=== PATIENT | female | born 1995 | race Two or more races ===

== ENCOUNTER 2024-09-29 11:24 | Emergency (ER) | payer BC, OTHER ==
[~2024-09-29] VITALS: Ht 160 cm; Wt 69.1 kg
[2024-09-29 13:41] LABS: Basophils # (auto) 0 10 ^3/uL (0-0.2); Basophils % (auto) 0.3 % (0.0-2.0); Eosinophils # (auto) 0.1 10 ^3/uL (0-0.8); Eosinophils % (auto) 1.2 % (0.0-7.0); Hematocrit 37.1 % (36.0-46.0); Hemoglobin 12.7 g/dL (12.2-16.2); Lymphocytes # (auto) 1.8 10 ^3/uL (0.4-5.4); Lymphocytes % (auto) 16.4 % (10.0-50.0); Mean Corpuscular Hemoglobin 30.8 pg (28.0-32.0); Mean Corpuscular Hgb Conc. 34.1 g/dL (32.0-36.0); Mean Corpuscular Volume 90.2 fL (80.0-100.0); Monocytes # (auto) 0.9 10 ^3/uL (0-1.3); Monocytes % (auto) 8.3 % (0.0-12.0); Neutrophils % (auto) 73.8 % (37.0-80.0); Platelet Count (auto) 341 10^3/uL (140-450); Red Blood Cells 4.12 10^6/uL (4.0-5.20); Red Cell Distribution Width 15.4 % (11.8-14.3); White Blood Cell 10.8 10^3/uL (4.4-10.8)
[2024-09-29 14:00] LABS: Alanine Aminotransferase 31 U/L (7-40); Alkaline Phosphatase 73 U/L (46-116); Aspartate Aminotransferase 30 U/L (13-40); Calcium 10.1 mg/dL (8.7-10.4); Carbon Dioxide 21 mmol/L (20-31); Chloride 105 mmol/L (98-107); Glucose 80 mg/dL (74-106)
[2024-09-29 14:01] LABS: Albumin 4.3 g/dL (3.2-4.8); Anion Gap 11 (5-15); Bilirubin, Total 0.3 mg/dL (0.2-1.0); Sodium 137 mmol/L (136-145); Total Protein 7.8 g/dL (5.7-8.2)
[2024-09-29 14:01] LABS: Urine Bacteria None Seen /hpf (None Seen)
[2024-09-29 14:06] LABS: BUN/Creatinine Ratio 9.8 (10.0-20.0); Blood Urea Nitrogen < 5 mg/dL (9-23); Potassium 3.5 mmol/L (3.5-5.1)
[2024-09-29 14:28] LABS: Urine Blood Negative /uL (Negative); Urine Clarity Clear (Clear); Urine Color Colorless (Yellow); Urine Mucus FEW (None Seen); Urine Protein, UAD Negative (Negative); Urine Specific Gravity 1.006 (1.001-1.035); Urine Squamous Epithelial Cell FEW /hpf (<5); Urine Urobilinogen Normal (Negative); Urine WBC 2 /hpf (0 - 5)
--- NOTE | 2024-09-29 15:05 | ED.PDOC ---
History of Present Illness HPI Comments 29-year-old female presents with a chief complaint of abdominal pain with associated nausea and current . Patient states that she is currently 18 weeks , . Patient mentions that she is having pain in her lower quadrant abdomen region, non-radiating, is described as cramping sensation, and is not associated with any other symptoms aside from nausea and vomiting, which she has had throughout her and has not changed. Patient denies any vaginal bleeding and reports that she was advised by her OB doctor Nilam to come to ER for evaluation. Patient mentions that her last bowel movement was normal and was this morning. Chief Complaint: Abdominal Pain Time Seen by MD: 14:54 Primary Care Provider: son Rodriguez Notes: Medications, Allergies Allergies: Coded Allergies: NO KNOWN ALLERGIES (Unverified , 09/29/24) Information Source: Patient Mode of Arrival: Ambulatory Severity: Moderate Timing: Days Duration: Since onset Prehospital treatment: None Past Medical History PAST MEDICAL HISTORY: Denies Surgical History: Denies all surgeries One Para 0 Family History Family History: Reviewed,noncontributory to illness Social History Smoker: Non-Smoker Alcohol: Denies ETOH Use Drugs: Denies Drug Use Lives In: Home Constitutional: denies: chills, diaphoresis, fatigue, fever, malaise, sweats, weakness, others EENTM: denies: blurred vision, double vision, ear bleeding, ear discharge, ear drainage, ear pain, ear ringing, eye pain, eye redness, hearing loss, mouth pain, mouth swelling, nasal discharge, nose bleeding, nose congestion, nose pain, photophobia, tearing, throat pain, throat swelling, voice changes, others Respiratory: denies: cough, hemoptysis, orthopnea, SOB at rest, shortness of breath, SOB with excertion, stridor, wheezing, others Cardiovascular: denies: chest pain, dizzy spells, diaphoresis, Dyspnea on exertion, edema, irregular heart beat, left arm pain, lightheadedness, palpitations, PND, syncope, others Gastrointestinal: reports: abdominal pain, nausea; denies: abdomen distended, blood streaked bowels, constipated, diarrhea, dysphagia, difficulty swallowing, hematemesis, melena, poor appetite, poor fluid intake, rectal bleeding, rectal pain, vomiting, others Genitourinary: reports: ; denies: abnormal vagina bleeding, burning, dyspareunia, dysuria, flank pain, frequency, hematuria, incontinence, pain, vagina discharge, urgency, others Neurological: denies: dizziness, fainting, headache, left sided numbness, left sided weakness, numbness, paresthesia, pre-existing deficit, right sided numbness, right sided weakness, seizure, speech problems, tingling, tremors, weakness, others Musculoskeletal: denies: back pain, gout, joint pain, joint swelling, muscle pain, muscle stiffness, neck pain, others Integumetry: denies: bruises, change in color, change in hair/nails, dryness, laceration, lesions, lumps, rash, wounds, others Allergic/Immunocompromised: denies: Difficulty Healing, Frequent Infections, Hives, Itching, others Hematologic/Lymphatic: denies: anemia, blood clots, easy bleeding, easy bruising, swollen glands, others Endocrine: denies: excessive hunger, excessive sweating, excessive thirst, excessive urination, flushing, intolerance to cold, intolerance to heat, unexplained weight gain, unexplained weight loss, others Psychiatric: denies: anxiety, bipolar disorder, depression, hopeless, panic disorder, schizophrenia, sleepless, suicidal, others All Other Systems: Reviewed and Negative Physical Exam General Appearance: No Apparent Distress HEENT: Other (Unremarkable) Neck: Full Range of Motion, Normal Inspection Respiratory: Lungs Clear, No Accessory Muscle Use, No Respiratory Distress, Normal Breath Sounds Cardiovascular: No Edema, No JVD, Regular Rate/Rhythm Breast Exam: Deferred Gastrointestinal: LLQ, Soft, Tenderness Genitalia: Deferred Pelvic: Deferred Rectal: Deferred Extremities: Normal inspection, Normal range of motion, Non-tender, No pedal edema Musculoskeletal : Apperance: Normal Neurologic: Alert (Oriented x4), No Motor Deficits, Normal Affect, Normal Mood, No Sensory Deficits Cerebellar Function: NOT DONE Reflexes: NOT DONE Skin: Dry, Normal Color, Warm Lymphatic: NOT DONE Was a procedure done? Was a procedure done?: No Differential Dx Considerations may include: UTI, distress, demise, threatened , constipation, d iverticular disease, kidney stone, among others X-Ray, Labs, Meds, VS Vital Signs Date Time Temp Pulse Resp B/P (MAP) Pulse Ox O2 Delivery O2 Flow Rate FiO2 09/29/24 17:25 98.2 88 14 108/52 (70) 100 98.2 09/29/24 11:41 99.0 89 17 114/76 (89) 100 Lab Test 09/29/24 14:00 09/29/24 13:17 Range/Units Urine Color Colorless Yellow Urine Clarity Clear Clear Urine pH 6.0 5.0-9.0 Urine Specific [place] 1.006 1.001-1.035 Urine Protein Negative Negative Urine Ketones Trace Negative Urine Blood Negative Negative /uL Urine Nitrite Negative Negative Urine Bilirubin Negative Negative Urine Urobilinogen Normal Negative mg/dL Urine Leukocyte Esterase Trace Negative /uL Urine RBC 1 0 - 4 /hpf Urine WBC 2 0 - 5 /hpf Urine Squamous Epithelial Cells Few <5 /hpf Urine Bacteria None seen None Seen /hpf Urine Mucus Few None Seen Urine Glucose Normal Normal mg/dL White Blood Count 10.8 4.4-10.8 10^3/uL Red Blood Count 4.12 4.0-5.20 10^6/uL Hemoglobin 12.7 12.2-16.2 g/dL Hematocrit 37.1 36.0-46.0 % Mean Corpuscular Volume 90.2 80.0-100.0 fL Mean Corpuscular Hemoglobin 30.8 28.0-32.0 pg Mean Corpuscular Hemoglobin Concent 34.1 32.0-36.0 g/dL Red Cell Distribution Width 15.4 H 11.8-14.3 % Platelet Count 341 140-450 10^3/uL Mean Platelet Volume 7.3 6.9-10.8 fL Neutrophils (%) (Auto) 73.8 37.0-80.0 % Lymphocytes (%) (Auto) 16.4 10.0-50.0 % Monocytes (%) (Auto) 8.3 0.0-12.0 % Eosinophils (%) (Auto) 1.2 0.0-7.0 % Basophils (%) (Auto) 0.3 0.0-2.0 % Neutrophils # (Auto) 8.0 1.6-8.6 10 ^3/uL Lymphocytes # (Auto) 1.8 0.4-5.4 10 ^3/uL Monocytes # (Auto) 0.9 0-1.3 10 ^3/uL Eosinophils # (Auto) 0.1 0-0.8 10 ^3/uL Basophils # (Auto) 0 0-0.2 10 ^3/uL Nucleated Red Blood Cells 0.0 % Sodium Level 137 136-145 mmol/L Potassium Level 3.5 3.5-5.1 mmol/L Chloride Level 105 98-107 mmol/L Carbon Dioxide Level 21 20-31 mmol/L Anion Gap 11 5-15 Blood Urea Nitrogen < 5 L 9-23 mg/dL Creatinine 0.51 L 0.550-1.02 mg/dL Glomerular Filtration Rate Calc 128 >90 mL/min BUN/Creatinine Ratio 9.8 L 10.0-20.0 Serum Glucose 80 74-106 mg/dL Calcium Level 10.1 8.7-10.4 mg/dL Total Bilirubin 0.3 0.2-1.0 mg/dL Aspartate Amino Transferase (AST) 30 13-40 U/L Alanine Aminotransferase (ALT) 31 7-40 U/L Alkaline Phosphatase 73 46-116 U/L Total Protein 7.8 5.7-8.2 g/dL Albumin 4.3 3.2-4.8 g/dL Beta HCG, Quantitative 99872.8 H 1.5-4.2 mIU/mL PROCEDURE(s): OBUS - OB ULTRASOUND COMP GTR 14 WKS REASON: LLQ PAIN ORDER NUMBER(s): [id number], ACCESSION NUMBER(s): [id number] LIMITED OB ULTRASOUND > 14 WKS: HISTORY: LLQ PAIN TECHNIQUE: Multiple real-time grayscale images of the gravid uterus with duplex Doppler color flow and M-mode spectral analysis. TRANSDUCER: Transabdominal FINDINGS: IUP single live fetus at 18 weeks 6 days based on composite averages of the BPD, head circumference, abdominal circumference and femur length Estimated weight 252 grams, or 0 lb 9 oz heart rate 148 beats per minute JOVANA within normal limits. Cervix not well-visualized Cephalic Presentation Anterior placenta without previa or abruption. IMPRESSION: 1. IUP single live fetus at 18 weeks 6 days AUA corresponding to an VA of 02/24/2025. HS:Y X-Ray, Labs, Meds, VS Comment 29-year-old female with current 18 week complaining of left lower quadrant pain for 3 days Vitals unremarkable Exam remarkable for left lower quadrant tenderness to deep palpation. Nontender to percussion. No rebound or guarding. Ultrasound: IMPRESSION: 1. IUP single live fetus at 18 weeks 6 days AUA corresponding to an VA of 02/24/2025 CBC, basic metabolic panel and UA unremarkable for any abnormality of acute significance. Serum quantitative hCG 81166.8 Patient declined any pain medication in the ED, stating she just wanted to make sure the baby is okay. On re-evaluation, patient is well-appearing, ambulatory without difficulty, and states pain is tolerable. Patient appears stable for outpatient treatment with Tylenol as needed for pain and close follow-up with her OBGYN. Rx Tylenol Time of 1ST Reevaluation: 15:24 Reevaluation 1ST: Unchanged Time of 2ND Reevaluation: 18:27 Reevaluation 2ND: Unchanged Patient Education/Counseling: Diagnosis, Treatment, Prognosis Family Education/Counseling: No Family Present Departure 1 Departure Time of Disposition: 18:27 Impression: Primary Impression: Abdominal pain affecting Disposition: 01 HOME / SELF CARE / HOMELESS Condition: Stable Additional Instructions: Your blood and urine tests were unremarkable. Your ultrasound was normal. I have enclosed a report below. No acute treatment is needed at this time. You may take Tylenol as needed for pain. Follow-up with your OBGYN in 1-2 days. [place] [address] Ph: [phone] DIAGNOSTIC IMAGING Diagnostic Imaging Report : [id number] Signed PATIENT: JM GUO ACCT: [id number] UNIT: [id number] : 1995 LOC: ER ROOM / BED: / AGE / SEX: 29 / F ADM STATUS: REG ER SERVICE 1502 ORDERING PHYSICIAN: JENNIFER العراقي MD PROCEDURE(s): OBUS - OB ULTRASOUND COMP GTR 14 WKS REASON: LLQ PAIN ORDER NUMBER(s): [id number], ACCESSION NUMBER(s): [id number] LIMITED OB ULTRASOUND > 14 WKS: HISTORY: LLQ PAIN TECHNIQUE: Multiple real-time grayscale images of the gravid uterus with duplex Doppler color flow and M-mode spectral analysis. TRANSDUCER: Transabdominal FINDINGS: IUP single live fetus at 18 weeks 6 days based on composite averages of the BPD, head circumference, abdominal circumference and femur length Estimated weight 252 grams, or 0 lb 9 oz heart rate 148 beats per minute JOVANA within normal limits. Cervix not well-visualized Cephalic Presentation Anterior placenta without previa or abruption. IMPRESSION: 1. IUP single live fetus at 18 weeks 6 days AUA corresponding to an VA of 02/24/2025. HS:Y ATED BY: SRINIVASA GONZALEZ DO DICTATED DATE/TIME: 09/29/24 1548 e-Prescriptions Acetaminophen (Tylenol Extra Strength) 500 Mg Tab 1000 MG PO Q6HP PRN, #30 TAB Prov: JENNIFER العراقي MD 09/29/24 Discharged With: Self Critical Care Note Critical Care Time?: No Stability Stability form required: No I personally scribed for JENNIFER العراقي MD ([email or web address]) on 09/29/24 at 15:05. Electronically submitted by Jensen Regalado ([email or web address]). JENNIFER العراقي MD Sep 29, 2024 15:05
--- NOTE | 2024-09-29 15:50 | DVH ---
LIMITED OB ULTRASOUND > 14 WKS: HISTORY: LLQ PAIN TECHNIQUE: Multiple real-time grayscale images of the gravid uterus with duplex Doppler color flow an d M-mode spectral analysis. TRANSDUCER: Transabdominal FINDINGS: IUP single live fetus at 18 weeks 6 days based on composite averages of the BPD, head circumference, abdominal circumference and femur length Estimated weight 252 grams, or 0 lb 9 oz heart rate 148 beats per minute JOVANA within normal limits. Cervix not well-visualized Cephalic Presentation Anterior placenta without previa or abruption. IMPRESSION: 1. IUP single live fetus at 18 weeks 6 days AUA corresponding to an VA of 02/24/2025. HS:Y
[2024-09-29 17:25] VITALS: BP 108/52; PULSE 88; RESP 14; TEMP 98.2; O2SAT 100
[2024-09-29] MEDS ORDERED: ACET-1304 PO (18:29)
== END 2024-09-29 19:15 | disposition home or self-care (01) ==
LOC: ER 11:24
DX: O26.892 Other specified pregnancy related conditions, second trimester (principal); R10.30 Lower abdominal pain, unspecified; R10.2 Pelvic and perineal pain; O21.9 Vomiting of pregnancy, unspecified; Z3A.18 18 weeks gestation of pregnancy
CPT/HCPCS: 36415; 76805; 80053; 81001; 84702; 85025

== ENCOUNTER 2025-02-18 22:07 | Observation (INO) | payer BC ==
[~2025-02-18] VITALS: Ht 160 cm; Wt 73.0 kg
[~2025-02-18 22:07] MED LIST: ACET-1304 PO
--- NOTE | 2025-02-19 22:46 | DVHDS2 ---
Physician Discharge Progress N Final Diagnosis: labor check 38wks Operations or Procedures: Operations or Procedures nst reactive reviwed Condition on Discharge: Good Disposition: Home Discharge Instructions: Diet: Regular Activity: No Restrictions, As Tolerated Medications: na Follow Up Care: Specialist: 1w Discharge Statement: "Patient was advised to return to the ER or call 911 if any headaches, dizziness, shortness of breath, chest pain, abdominal pain, bleeding, fevers, or worsening of medical condition. Patient was counseled about treatment plan, medications, possible side effects, patientverbalized understanding. All questions were answered to the best of my ability. This discharge took greater then 30 minutes in planning, reviewing documen tation, counseling the patient, and discussing with other team members." Visit Coding OBGYN Date of Service: February 18, 2025 Billing Provider: TITUS ARCHER DO AUTO LOCATOR Common Visit Codes: [id number] OBS CARE (HIGH) AUTO LOCATOR Procedure Codes: 68654-26- NON-STRESS TEST TITUS ARCHER DO February 19, 2025 22:46
== END 2025-02-18 23:36 | disposition home or self-care (01) ==
LOC: LDRP 22:07
PROVIDERS: ADMIT Obstetrics & Gynecology; ATTEND Obstetrics & Gynecology
DX: O62.9 Abnormality of forces of labor, unspecified (principal); Z3A.38 38 weeks gestation of pregnancy; Z79.899 Other long term (current) drug therapy
CPT/HCPCS: 59025; 81002; 94760; G0378

== ENCOUNTER 2025-02-19 03:18 | Inpatient (IN) | payer BC, OTHER ==
[~2025-02-19] VITALS: Ht 160 cm; Wt 73.0 kg
[2025-02-19] MEDS: LACTATED RINGER'S 1,000 ML IV SCH (04:00)
[2025-02-19] MEDS ORDERED: NALBUPHINE HCL 10 MG/1ml INJECTION IV PRN (04:30)
[2025-02-19] MEDS ORDERED: LIDOCAINE 2%HCL (LOCAL ANESTH.) INJ 20ML MDV IJ PRN (04:30)
[2025-02-19 05:03] LABS: Basophils # (auto) 0.1 10 ^3/uL (0-0.2); Basophils % (auto) 0.6 % (0.0-2.0); Eosinophils # (auto) 0.1 10 ^3/uL (0-0.8); Eosinophils % (auto) 0.7 % (0.0-7.0); Hematocrit 38.4 % (36.0-46.0); Hemoglobin 12.9 g/dL (12.2-16.2); Lymphocytes # (auto) 1.7 10 ^3/uL (0.4-5.4); Lymphocytes % (auto) 14.6 % (10.0-50.0); Mean Corpuscular Hgb Conc. 33.6 g/dL (32.0-36.0); Mean Corpuscular Volume 89.3 fL (80.0-100.0); Monocytes # (auto) 1.2 10 ^3/uL (0-1.3); Monocytes % (auto) 10.5 % (0.0-12.0); Neutrophils # (auto) 8.6 10 ^3/uL (1.6-8.6); Neutrophils % (auto) 73.6 % (37.0-80.0); Nucleated Red Blood Cells % 0.1 %; Platelet Count (auto) 285 10^3/uL (140-450); Red Cell Distribution Width 16.6 % (11.8-14.3); White Blood Cell 11.7 10^3/uL (4.4-10.8)
[2025-02-19 05:13] LABS: Urine Bacteria FEW /hpf (None Seen); Urine Blood 1+ /uL (Negative); Urine Clarity Turbid (Clear); Urine Color Colorless (Yellow); Urine Protein, UAD 1+ (Negative); Urine Squamous Epithelial Cell MOD /hpf (<5); Urine Urobilinogen Normal (Negative); Urine WBC 27 /HPF (0-5); Urine pH 6.5 (5.0-9.0)
--- NOTE | 2025-02-19 05:19 | DVHHP ---
ADMIT DATE: 02/19/2025 CHIEF COMPLAINT: Spontaneous rupture of membrane. HISTORY OF PRESENT ILLNESS: The patient is a 29-year-old 1, para 0 with EDC 02/27, estimated gestational age of 38+ weeks, admitted for spontaneous rupture of membrane. Denies having any vaginal bleeding. The patient has positive AmniSure and pooling. PAST MEDICAL HISTORY: None. PAST SURGICAL HISTORY: None. SOCIAL HISTORY: None. FAMILY HISTORY: None. OBSTETRIC AND GYNECOLOGIC HISTORY: Primigravid. ALLERGIES: No known drug allergies. REVIEW OF SYSTEMS: Consistent with HPI. PHYSICAL EXAMINATION: VITAL SIGNS: Stable, afebrile. HEENT: Within normal limits. CARDIOVASCULAR: Regular rate and rhythm. LUNGS: Clear to auscultation. BREASTS: Symmetrical. No masses. ABDOMEN: Gravid. Positive heart. PELVIC: 2 cm, 50%, -1. EXTREMITIES: No clubbing, cyanosis or edema. IMPRESSION: Intrauterine at 38+ weeks with spontaneous rupture of membrane. PLAN: Admit. We will start on Pitocin. Informed consent obtained. DO ISIDORO Dubois/TORRI TID: [id number] RECEIPT: [id number]
[2025-02-19 05:20] LABS: Alanine Aminotransferase 15 U/L (7-40); Albumin 3.7 g/dL (3.2-4.8); Anion Gap 10 (5-15); Aspartate Aminotransferase 18 U/L (13-40); Calcium 9.2 mg/dL (8.7-10.4); Carbon Dioxide 21 mmol/L (20-31); Chloride 105 mmol/L (98-107); Glucose 94 mg/dL (74-106); Potassium 3.7 mmol/L (3.5-5.1); Total Protein 6.8 g/dL (5.7-8.2)
[2025-02-19 05:21] LABS: Bilirubin, Total 0.4 mg/dL (0.2-1.0)
[2025-02-19 05:23] LABS: INR 0.94 (0.9-1.15)
--- NOTE | 2025-02-19 05:27 | DVH ---
EXAM: US Biophysical Profile Without Non-Stress Testing CLINICAL INDICATION: Leakage of Fluid and Category II FHR Tracing TECHNIQUE: Real-time ultrasound of the maternal pelvis for biophysical profile evaluation with image documentation. COMPARISON: None FINDINGS: BREATHING MOVEMENTS: Present. Score 2/2. GROSS BODY MOVEMENTS: Present. Score 2/2. TONE: Present. Score 2/2. QUALITATIVE AMNIOTIC FLUID VOLUME: JOVANA 20.9 cm. HEART RATE: heart rate 141 beats per minute. PRESENTATION: Cephalic presentation. PLACENTA: Anterior locating placenta. No placenta previa or abruption. OTHER FINDINGS: . . IMPRESSION: No acute findings. Normal biophysical profile with score of 8/8.
[2025-02-19 05:31] LABS: Alkaline Phosphatase 162 U/L (46-116); BUN/Creatinine Ratio 9.4 (10.0-20.0); Blood Urea Nitrogen < 5 mg/dL (9-23); Sodium 136 mmol/L (136-145)
[2025-02-19 05:32] LABS: Amphetamine Screen, Urine Neg (NEGATIVE); Barbiturate Scree,Urine Neg (NEGATIVE); Benzodiazephine Screen, Urine Neg (NEGATIVE); Cannabinoid Screen, Urine Neg (NEGATIVE); Cocaine Screen, Urine Neg (NEGATIVE); Opiate Scree,Urine Neg (NEGATIVE); Phencyclidine Screen, Urine Neg (NEGATIVE)
[2025-02-19] MEDS: NALOXONE HCL 0.4 MG/ML VIAL IV ONE (06:30)
--- NOTE | 2025-02-19 07:16 | DVHPN2 ---
Chief Complaints Patient reports: No new complaints Nursing reports: No new complaints Objective Medications Current Medications Medications (Trade) Dose Ordered Sig/Demetris Route PRN Reason Start Time Stop Time Status Last Admin Benzocaine (Dermoplast) 1 applic PRN PRN TOP PERINEAL AREA DISCOMFORT 02/19/25 04:30 Cefazolin Sodium 50 ml @ 100 mls/hr Q8HR IV 02/19/25 06:00 Lactated Ringer's 1,000 ml @ 125 mls/hr Q8H IV 02/19/25 04:00 02/19/25 04:00 Lidocaine HCl (Xylocaine) 40 ml ONCE PRN IJ PERINEAL AREA DISCOMFORT 02/19/25 04:30 Misoprostol (Cytotec) 50 mcg Q4HPRN PRN PO CERVICAL RIPENING 02/19/25 05:30 Nalbuphine HCl (Nubain) 10 mg Q4HP PRN IV MODERATE PAIN (4-6 PAIN SCALE) 02/19/25 04:30 Sodium Lauryl Sulfate (Phisoderm) 240 ml PRN PRN TOP PERINEAL AREA DISCOMFORT 02/19/25 04:30 Witch Graciela (Tucks) 1 pad PRN PRN TOP PERINEAL AREA DISCOMFORT 02/19/25 04:30 Lungs: Normal Cardiovascular: Normal Abdominal: Soft Extremities: Normal Studies Laboratory Tests 02/19/25 04:42 Test 02/19/25 04:42 Range/Units Serum Glucose 94 74-106 mg/dL Ass/Plan Assessment early labor Plan rec epidural give cytotec then start pitocin Visit Coding OBGYN Date of Service: February 19, 2025 Billing Provider: TITUS ARCHER DO ASSISTANT WOMEN'S TENNIS COACH Common Visit Codes: [id number] INP/OBS CARE(HIGH) ASSISTANT WOMEN'S TENNIS COACH Procedure Codes: 92887-60- NON-STRESS TEST TITUS ARCHER DO February 19, 2025 07:16
[2025-02-19] MEDS: ePHEDrine SULFATE 50 MG/ML AMP IV ONE (07:19)
[2025-02-19] MEDS: ceFAZolin 1GM/50ML 50 ML IV SCH (07:30)
[2025-02-19] MEDS: DERMOPLAST 60ML BOTTLE TOP PRN (07:41)
[2025-02-19] MEDS: WITCH HAZEL-GLYCERIN PAD TOP PRN (07:41)
[2025-02-19] MEDS: PHISODERM TOP SOLN 240ML BTL TOP PRN (07:41)
[2025-02-19] MEDS: ROPIVACAINE HCL 200 ML ONE (07:43)
[2025-02-19] MEDS: LACTATED RINGER'S 1,000 ML IV ONE (07:45)
[2025-02-19] MEDS: miSOPROStol 50 MCG per PRE-CUT 1/2 TAB PO PRN (10:59)
--- NOTE | 2025-02-19 14:19 | DVHPN2 ---
Chief Complaints Patient reports: No new complaints Nursing reports: No new complaints Objective Medications Current Medications Medications (Trade) Dose Ordered Sig/Demetris Route PRN Reason Start Time Stop Time Status Last Admin Benzocaine (Dermoplast) 1 applic PRN PRN TOP PERINEAL AREA DISCOMFORT 02/19/25 04:30 02/19/25 07:41 Cefazolin Sodium 50 ml @ 100 mls/hr Q8HR IV 02/19/25 06:00 02/19/25 07:30 Lactated Ringer's 1,000 ml @ 125 mls/hr Q8H IV 02/19/25 04:00 02/19/25 04:00 Lidocaine HCl (Xylocaine) 40 ml ONCE PRN IJ PERINEAL AREA DISCOMFORT 02/19/25 04:30 Misoprostol (Cytotec) 50 mcg Q4HPRN PRN PO CERVICAL RIPENING 02/19/25 05:30 Nalbuphine HCl (Nubain) 10 mg Q4HP PRN IV MODERATE PAIN (4-6 PAIN SCALE) 02/19/25 04:30 Sodium Lauryl Sulfate (Phisoderm) 240 ml PRN PRN TOP PERINEAL AREA DISCOMFORT 02/19/25 04:30 02/19/25 07:41 Witch Graciela (Tucks) 1 pad PRN PRN TOP PERINEAL AREA DISCOMFORT 02/19/25 04:30 02/19/25 07:41 Lungs: Normal Cardiovascular: Normal Abdominal: Soft Extremities: Normal Others ve-2.5cm/60/-2 Studies Laboratory Tests 02/19/25 04:42 Test 02/19/25 04:42 Range/Units Serum Glucose 94 74-106 mg/dL Ass/Plan Assessment early labor Plan rec cytotec and epidural supportive care Visit Coding OBGYN Date of Service: February 19, 2025 Billing Provider: TITUS ARCHER DO PHYSICAL THERAPIST CENTER MANAGER Common Visit Codes: [id number] INP/OBS CARE(HIGH) PHYSICAL THERAPIST CENTER MANAGER Procedure Codes: 96570-85- NON-STRESS TEST TITUS ARCHER DO February 19, 2025 14:19
[2025-02-19] MEDS: LACT. RINGERS/OXYTOCIN 20UNITS 1,000 ML IV SCH (16:00)
--- NOTE | 2025-02-19 16:59 | DVHPN2 ---
Chief Complaints Patient reports: No new complaints Nursing reports: No new complaints Objective Medications Current Medications Medications (Trade) Dose Ordered Sig/Demetris Route PRN Reason Start Time Stop Time Status Last Admin Benzocaine (Dermoplast) 1 applic PRN PRN TOP PERINEAL AREA DISCOMFORT 02/19/25 04:30 02/19/25 07:41 Cefazolin Sodium 50 ml @ 100 mls/hr Q8HR IV 02/19/25 06:00 02/19/25 15:17 Lactated Ringer's 1,000 ml @ 125 mls/hr Q8H IV 02/19/25 04:00 02/19/25 04:00 Lidocaine HCl (Xylocaine) 40 ml ONCE PRN IJ PERINEAL AREA DISCOMFORT 02/19/25 04:30 Misoprostol (Cytotec) 50 mcg Q4HPRN PRN PO CERVICAL RIPENING 02/19/25 05:30 02/19/25 10:59 Nalbuphine HCl (Nubain) 10 mg Q4HP PRN IV MODERATE PAIN (4-6 PAIN SCALE) 02/19/25 04:30 Oxytocin 1,000 ml @ 6 ml/hr Q24H IV 02/19/25 15:15 02/19/25 16:00 Sodium Lauryl Sulfate (Phisoderm) 240 ml PRN PRN TOP PERINEAL AREA DISCOMFORT 02/19/25 04:30 02/19/25 07:41 Witch Graciela (Tucks) 1 pad PRN PRN TOP PERINEAL AREA DISCOMFORT 02/19/25 04:30 02/19/25 07:41 Lungs: Normal Cardiovascular: Normal Abdominal: Soft Extremities: Normal Others ve-3cm/90/-1.5 Studies Laboratory Tests 02/19/25 04:42 Test 02/19/25 04:42 Range/Units Serum Glucose 94 74-106 mg/dL Ass/Plan Assessment early labor Plan arom done clear fld,iupc inserted cont with pitocin Visit Coding OBGYN Date of Service: February 19, 2025 Billing Provider: TITUS ARCHER DO TEACHER ADULT EDUCATION Common Visit Codes: [id number] INP/OBS CARE(HIGH) TEACHER ADULT EDUCATION Procedure Codes: 65984-77- NON-STRESS TEST TITUS ARCHER DO February 19, 2025 16:59
[2025-02-19] MEDS ORDERED: PHENYLEPHRINE HCL 10 MG/ML VL IV PRN (19:15)
[2025-02-19] MEDS: LACT. RINGERS/OXYTOCIN 20UNITS 500 ML IV ONE ×2 (23:21→23:40)
[2025-02-19] MEDS: METHYLERGONOVINE MALEATE 0.2 MG/ML AMP IM ONE (23:23)
--- NOTE | 2025-02-19 23:43 | LDN2 ---
Labor and Delivery Note Date 02/19/25 Age 29 1 Para 1 EDC 6-7 EGA 38wks Diagnosis labor,srom Vaginal Delivery: VTX Vacuum Assisted: Yes Placenta: Spontaneous Sex: Female Apgars 8-9 Nuchal Cord Transected: No Amniotic Fluid: Clear Anesthesia epidural Episiotomy: Yes Extension: Yes (midline epis with 2nd dge perineal lac) Repaired with 2-0 chromic EBL 300ml Labs Blood Bank 02/19/25 04:42: Blood Type O POSITIVE Complications none Conditions stable Comments/Significant Med Ciera spec exam no cxal lac,midline epis given due to poor pushing effort and maternal exhaustion , pt asked permission for epis and vaccum del to which she agreed.vaccum applied by 3rd attempt baby delivered.cord ph 7.3 Visit Coding OBGYN Date of Service: February 19, 2025 Billing Provider: TITUS ARCHER DO CENTRIFUGE SEPARATOR OPERATOR Common Visit Codes: [id number] OBS CARE (HIGH) CENTRIFUGE SEPARATOR OPERATOR Procedure Codes: 66890-KSV DELIVERY ONLY, 80937-OUF DEL INCLUDING TITUS ARCHER DO February 19, 2025 23:43
[2025-02-20] MEDS ORDERED: ONDANSETRON ODT 4 MG TAB PO PRN
[2025-02-20] MEDS ORDERED: ACETAMINOPHEN 325 MG TAB PO PRN
[2025-02-20] MEDS: IBUPROFEN 800 MG TAB PO PRN (01:38)
--- NOTE | 2025-02-20 03:06 | DVHPN2 ---
Chief Complaints Patient reports: No new complaints Nursing reports: No new complaints Objective Medications Current Medications Medications (Trade) Dose Ordered Sig/Demetris Route PRN Reason Start Time Stop Time Status Last Admin Acetaminophen (Tylenol Tablet) 650 mg Q4HP PRN PO MILD PAIN (1-3 PAIN SCALE) 02/20/25 00:00 Benzocaine (Dermoplast) 1 applic PRN PRN TOP PERINEAL AREA DISCOMFORT 02/19/25 04:30 02/19/25 07:41 Cefazolin Sodium 50 ml @ 100 mls/hr Q8HR IV 02/19/25 06:00 02/19/25 22:47 Docusate Sodium (Colace Capsule) 200 mg HS PO 02/20/25 22:00 Ibuprofen (Motrin Tablet) 600 mg Q6HP PRN PO MODERATE PAIN (4-6 PAIN SCALE) 02/20/25 00:00 Ibuprofen (Motrin Tablet) 800 mg ONCE PRN PO PAIN SCALE 7 THRU 10 02/20/25 00:00 02/20/25 01:38 Lactated Ringer's 1,000 ml @ 125 mls/hr Q8H IV 02/19/25 04:00 02/19/25 04:00 Lidocaine HCl (Xylocaine) 40 ml ONCE PRN IJ PERINEAL AREA DISCOMFORT 02/19/25 04:30 Ondansetron HCl (Zofran Po) 4 mg Q4HPRN PRN PO NAUSEA / VOMITING 02/20/25 00:00 Phenylephrine HCl 0.1 mg [id number] PRN IV SBP <90 02/19/25 19:15 Sodium Lauryl Sulfate (Phisoderm) 240 ml PRN PRN TOP PERINEAL AREA DISCOMFORT 02/19/25 04:30 02/19/25 07:41 Witch Graciela (Tucks) 1 pad PRN PRN TOP PERINEAL AREA DISCOMFORT 02/19/25 04:30 02/19/25 07:41 Lungs: Normal Cardiovascular: Normal Abdominal: Soft Extremities: Normal Studies Laboratory Tests 02/19/25 04:42 Test 02/19/25 04:42 Range/Units Serum Glucose 94 74-106 mg/dL Ass/Plan Assessment S/P VACCUM DEL Plan SUPPORTIVE CARE Visit Coding OBGYN Date of Service: February 20, 2025 Billing Provider: TITUS ARCHER DO SCRAP HANDLER Common Visit Codes: [id number] INP/OBS CARE(HIGH) TITUS ARCHER DO February 20, 2025 03:06
[2025-02-20 07:30] VITALS: BP 81/47; PULSE 73; RESP 18; TEMP 97.9; O2SAT 100
[2025-02-20] MEDS: IBUPROFEN 600 MG TAB PO PRN (07:44)
[2025-02-20 11:22] VITALS: BP 91/61; PULSE 108; RESP 18; TEMP 98; O2SAT 100
[2025-02-20 14:45] VITALS: BP 130/62; PULSE 105; RESP 18; TEMP 98; O2SAT 97
[2025-02-20 18:30] VITALS: BP 97/62; PULSE 90; RESP 16; TEMP 97.9; O2SAT 98
[2025-02-20] MEDS: DOCUSATE SOD 100 MG CAP PO SCH (22:01)
[2025-02-20 23:00] VITALS: BP 101/63; PULSE 85; RESP 16; TEMP 98.2; O2SAT 98
[2025-02-21] MEDS: ceFAZolin 1GM/50ML 50 ML IV SCH (00:28)
[2025-02-21 03:00] VITALS: BP 101/66; PULSE 86; RESP 16; TEMP 98.2; O2SAT 98
--- NOTE | 2025-02-21 06:30 | DVHPN2 ---
Progress Note Date Seen: Feb 21, 2025 Subjective S: Lochia minimal Tolerating regular diet well. Ambulating and voiding well w/o feeling lightheaded or dizzy. Passing flatus but no BM yet. Breast feeding. Contraceptive plan: undecided Desires and requests to be discharged home today vital signs Vital Sign Date Time Temp Pulse Resp B/P (MAP) Pulse Ox O2 Delivery O2 Flow Rate FiO2 02/21/25 03:00 98.2 86 16 101/66 (78) 98 98.2 02/20/25 19:30 Room Air Total Intake and Output 02/20/25 02/20/25 02/21/25 15:00 23:00 07:00 Output Total 550 ml 500 ml Balance -550 ml -500 ml medications Current Medications Medications Dose Ordered Sig/Demetris Route Start Time Stop Time Status Last Admin Dose Admin Lactated Ringer's 1,000 ml @ 125 mls/hr Q8H IV 02/19/25 04:00 02/19/25 04:00 125 MLS/HR Rachid Owens 1 pad PRN PRN TOP 02/19/25 04:30 02/20/25 14:50 1 PAD Sodium Lauryl Sulfate 240 ml PRN PRN TOP 02/19/25 04:30 02/19/25 07:41 240 ML Benzocaine 1 applic PRN PRN TOP 02/19/25 04:30 02/19/25 07:41 1 APPLIC Lidocaine HCl 40 ml ONCE PRN IJ 02/19/25 04:30 Cancel Phenylephrine HCl 0.1 mg [id number] PRN IV 02/19/25 19:15 Acetaminophen 650 mg Q4HP PRN PO 02/20/25 00:00 Ondansetron HCl 4 mg Q4HPRN PRN PO 02/20/25 00:00 Docusate Sodium 200 mg HS PO 02/20/25 22:00 02/20/25 22:01 200 MG Ibuprofen 800 mg ONCE PRN PO 02/20/25 00:00 02/20/25 01:38 800 MG Ibuprofen 600 mg Q6HP PRN PO 02/20/25 00:00 02/20/25 23:56 600 MG laboratory and microbiology Laboratory Tests 02/19/25 04:42 Test 02/19/25 04:42 Range/Units Serum Glucose 94 74-106 mg/dL Objective A&O x3 NAD. Afebrile, VSS Chest: heart and lung sounds normal. Breasts: Nipples intact w/o cracks or soreness Abdomen: normal BS, soft, non-tender, no rebound or guarding, fundus firm @ U- 1, lochia minimal Perineum:- no edema, or erythema, Incision site with sutures intact, edges in good approximation. Extremities: no edema or tenderness Lochia - minimal Assessment/Plan 29yo now ppd#2 s/p doing well. Blood Type: O Rh: Positive Breast feeding Rubella Immune Pain control with oral medications Bowel regimen: Increase fluid intake and fiber in diet, Laxative PRN PP BCM Plan: undecided Discharge plan: May discharge home later today if condition remains stable Plan discussed with: Patient, Spouse Visit Coding OBGYN Date of Service: Feb 21, 2025 Billing Provider: CELIA IVERSON CNM [employer] Common Visit Codes: [id number] INP/OBS CARE(HIGH) CELIA IVERSON CNM Feb 21, 2025 06:30
--- NOTE | 2025-02-21 06:39 | DVHDS2 ---
Discharge Summary Date of Admission February 19, 2025 at 04:22 Date of Discharge: Feb 21, 2025 Admitting Diagnosis IUP at 38w 6days Spontaneous Rupture of Membranes Labs/Diagnostic Data: Laboratory Results Test 02/19/25 04:42 02/19/25 03:30 White Blood Count 11.7 10^3/uL (4.4-10.8) Red Blood Count 4.30 10^6/uL (4.0-5.20) Hemoglobin 12.9 g/dL (12.2-16.2) Hematocrit 38.4 % (36.0-46.0) Mean Corpuscular Volume 89.3 fL (80.0-100.0) Mean Corpuscular Hemoglobin 30.0 pg (28.0-32.0) Mean Corpuscular Hemoglobin Concent 33.6 g/dL (32.0-36.0) Red Cell Distribution Width 16.6 % (11.8-14.3) Platelet Count 285 10^3/uL (140-450) Mean Platelet Volume 8.0 fL (6.9-10.8) Neutrophils (%) (Auto) 73.6 % (37.0-80.0) Lymphocytes (%) (Auto) 14.6 % (10.0-50.0) Monocytes (%) (Auto) 10.5 % (0.0-12.0) Eosinophils (%) (Auto) 0.7 % (0.0-7.0) Basophils (%) (Auto) 0.6 % (0.0-2.0) Neutrophils # (Auto) 8.6 10 ^3/uL (1.6-8.6) Lymphocytes # (Auto) 1.7 10 ^3/uL (0.4-5.4) Monocytes # (Auto) 1.2 10 ^3/uL (0-1.3) Eosinophils # (Auto) 0.1 10 ^3/uL (0-0.8) Basophils # (Auto) 0.1 10 ^3/uL (0-0.2) Nucleated Red Blood Cells 0.1 % Prothrombin Time 10.0 sec (9.3-11.8) Prothrombin Time INR 0.94 (0.9-1.15) Activated Partial Thromboplast Time 28.0 SEC (24.5-34.5) Urine Color Colorless (Yellow) Urine Clarity Turbid (Clear) Urine pH 6.5 (5.0-9.0) Urine Specific [place] 1.010 (1.001-1.035) Urine Protein 1+ (Negative) Urine Ketones Negative (Negative) Urine Blood 1+ /uL (Negative) Urine Nitrite Negative (Negative) Urine Bilirubin Negative (Negative) Urine Urobilinogen Normal mg/dL (Negative) Urine Leukocyte Esterase 2+ /uL (Negative) Urine RBC 36 /hpf (0 - 4) Urine Microscopic WBC 27 /HPF (0-5) Urine Squamous Epithelial Cells Mod /hpf (<5) Urine Bacteria Few /hpf (None Seen) Urine Glucose Normal mg/dL (Normal) Sodium Level 136 mmol/L (136-145) Potassium Level 3.7 mmol/L (3.5-5.1) Chloride Level 105 mmol/L (98-107) Carbon Dioxide Level 21 mmol/L (20-31) Anion Gap 10 (5-15) Blood Urea Nitrogen < 5 mg/dL (9-23) Creatinine 0.53 mg/dL (0.550-1.02) Glomerular Filtration Rate Calc 127 mL/min (>90) BUN/Creatinine Ratio 9.4 (10.0-20.0) Serum Glucose 94 mg/dL (74-106) Calcium Level 9.2 mg/dL (8.7-10.4) Total Bilirubin 0.4 mg/dL (0.2-1.0) Aspartate Amino Transferase (AST) 18 U/L (13-40) Alanine Aminotransferase (ALT) 15 U/L (7-40) Alkaline Phosphatase 162 U/L (46-116) Total Protein 6.8 g/dL (5.7-8.2) Albumin 3.7 g/dL (3.2-4.8) Urine Opiates Screen Neg (NEGATIVE) Urine Fentanyl Screen Neg (NEGATIVE) Urine Barbiturates Screen Neg (NEGATIVE) Urine Phencyclidine Screen Neg (NEGATIVE) Urine Amphetamines Screen Neg (NEGATIVE) Urine Benzodiazepines Screen Neg (NEGATIVE) Urine Cocaine Screen Neg (NEGATIVE) Urine Cannabinoids Screen Neg (NEGATIVE) Treponema pallidum Antibody Non-reactive (Negative) Placental [id number] Positive Other Laboratory Tests 02/19/25 04:42 Brief Hx & Hospital Course: Admitted on 02/19/25 at 38w 6d EGA for Spontaneous Rupture of membranes. labor augmented with oxytocin and patient then had an uneventful labor, got labor epidural for pain relief. She progressed to 2nd stage of labor and had a over an a midline episiotomy. ( See Delivery Note for details) Normal course; meeting milestones w/o any problem or complication Operations or Procedures over Midline Episiotomy Repair of episiotomy & Laceration Condition at Discharge: Good Final Diagnosis/Problems List Same at Term Discharge Disposition: Home Discharge Instruct/Medications Diet: Regular Diet comment: Routine regular diet rich in fiber, protein, iron and vitamin C with adequate fluid intake. Activity: No Restrictions, As Tolerated Activity comment: Unrestricted. Advance as tolerated. No heavy lifting, pushing or straining. Pelvic rest x 6weeks Follow Up/Referral: Follow up with Ob care provider in 1 week Medications: Ibuprofen 600mg every 6 hours as needed for pain. Continue Vitamin Discharge Statement: self care instructions given. emergency signs and symptoms including but not limited to PPH, pre-eclampsia precautions and signs of PPD reviewed with patient. Follow up with OB Provider in 1 week "Patient was advised to return to the ER or call 911 if any headaches, dizziness, shortness of breath, chest pain, abdominal pain, bleeding, fevers, or worsening of medical condition. Patient was counseled about treatment plan, medications, possible side effects, patientverbalized understanding. All questions were answered to the best of my ability. This discharge took greater then 30 minutes in planning, reviewing documentation, counseling the patient, and discussing with other team members." ASSESSMENT ASSESSMENT Hospital Course Admitted on 02/19/25 at 38w 6d EGA for Spontaneous Rupture of Membrane. labor augmented with oxytocin ripening medication and patient then had an uneventful labor, got labor epidural for pain relief. She progressed to 2nd stage of labor and had a over an a midline episiotomy. ( See Delivery Note for details) Normal course; meeting milestones w/o any problem or complication. Assessment at Term Visit Coding OBGYN Date of Service: Feb 21, 2025 Billing Provider: CELIA IVERSON CNM [employer] Common Visit Codes: 08413-IIN/OBS DISCH DAY <30MIN CELIA IVERSON CNM Feb 21, 2025 06:39
[2025-02-21 06:59] VITALS: BP 82/46; PULSE 78; RESP 18; TEMP 97.8; O2SAT 98
[2025-02-21] MEDS ORDERED: PREN-129 OR (10:44)
[2025-02-21 11:17] VITALS: BP 105/62; PULSE 82; RESP 16; TEMP 98.5; O2SAT 98
== END 2025-02-21 12:30 | disposition home or self-care (01) | DRG 807 ==
LOC: LDRP 03:18 → OBSVTOIN 04:22 → LDRP 04:35
PROVIDERS: ADMIT Obstetrics & Gynecology; ATTEND Obstetrics & Gynecology
PROC: 10D07Z6 Extraction of Products of Conception, Vacuum, Via Natural or Artificial Opening (ICD-10-PCS; principal; 2025-02-19)
PROC: 0KQM0ZZ Repair Perineum Muscle, Open Approach (ICD-10-PCS; 2025-02-19)
PROC: 3E0S3BZ Introduction of Anesthetic Agent into Epidural Space, Percutaneous Approach (ICD-10-PCS; 2025-02-19)
PROC: 0W8NXZZ Division of Female Perineum, External Approach (ICD-10-PCS; 2025-02-19)
DX: O42.02 Full-term premature rupture of membranes, onset of labor within 24 hours of rupture (principal); Z37.0 Single live birth; O70.1 Second degree perineal laceration during delivery; Z3A.38 38 weeks gestation of pregnancy
CPT/HCPCS: 36415; 59409; 62282; 76819; 80053; 80307; 81001; 84112; 85025; 85610; 85730; 86780; 86850; 86900; 86901; 94760; 96360; 96361; 96365; 96366; 96372; 96374; 96375; G0378; J2590